=== PATIENT | female | born 2000 | race Caucasian/White ===

== ENCOUNTER 2023-10-09 08:51 | Outpatient (CLI) | payer OTHER, SELFPAY | END 2023-10-09 08:52 | disposition home or self-care (01) | PROVIDERS: PCP Family Medicine; Visit Provider Family Medicine | DX: I51.9 Heart disease, unspecified (principal); Q25.40 Congenital malformation of aorta unspecified; Z86.79 Personal history of other diseases of the circulatory system | CPT/HCPCS: 93306 ==